=== PATIENT | male | born 1990 | race Caucasian/White ===

== ENCOUNTER 2016-06-24 14:15 | Inpatient (IN) | payer OTHER ==
[2016-06-24 15:04] VITALS: BMI 25.2
--- NOTE | 2016-06-24 15:41 | HP ---
COWS - Scale Resting Pulse: 0= [place] 80 or Below Sweatin= Chills/Flushing Restless Observation: 3= Extraneous Movement Pupil Size: 1= Pupils >than Normal Bone or Joint Aches: 2= Severe Diffuse Aches Runny Nose/ Eye Tearin= Nasal Congestion GI Upset > 30mins: 1= Stomach Cramp Tremor Observation: 2= Slight Tremor Visible Yawning Observation: 2= >3x During Session Anxiety or Irritability: 2=Irritable/Anxious Goose Flesh Skin: 0=Smooth Skin COWS Score: 15 Admission ROS BHS - HPI Chief Complaint: I need help to stop using heroin and cocaine Allergies/Adverse Reactions: Allergies Allergy/AdvReac Type Severity Reaction Status Date / Time Sulfa (Sulfonamide Allergy Unknown Verified 06/24/16 15:33 Antibiotics) History of Present Illness: 25 y/o mpt with a h/o heroin and cocaine dep. seeking detox. Exam Limitations: No Limitations - Ebola screening Have you traveled outside of the country in the last 21 days: No Have you been sick,other than usual withdrawal symptoms: No Do you have a fever: No - Review of Systems Constitutional: Loss of Appetite, Night Sweats, Changes in sleep EENT: reports: Blurred Vision, Nose Congestion Respiratory: reports: No Symptoms reported Cardiac: reports: No Symptoms Reported GI: reports: No Symptoms Reported : reports: No Symptoms Reported Musculoskeletal: reports: Joint Pain, Muscle Pain Integumentary: reports: Sweating Neuro: reports: No Symptoms reported Endocrine: reports: No Symptoms Reported Hematology: reports: No Symptoms Reported Psychiatric: reports: Agitated, Anxious, Depressed Other Systems: Reviewed and Negative Patient History - Patient Medical History Hx Anemia: No Hx Asthma: No Hx Chronic Obstructive Pulmonary Disease (COPD): No Hx Cancer: No Hx Cardiac Disorders: No Hx Congestive Heart Failure: No Hx Hypertension: No Hx Hypercholesterolemia: No Hx Pacemaker: No HX Cerebrovascular Accident: No Hx Seizures: No Hx Dementia: No Hx Diabetes: No Hx Gastrointestinal Disorders: No Hx Genitourinary Disorders: No Hx Sexually Transmitted Disorders: No Hx Renal Disease (ESRD): No Hx Thyroid Disease: No Hx Human Immunodeficiency Virus (HIV): No Hx Hepatitis C: Yes Hx Depression: Yes Hx Suicide Attempt: No Hx Bipolar Disorder: No Hx Schizophrenia: No Other Medical History: ADHD - Patient Surgical History Hx Cholecystectomy: Yes (2013) Hx Section: No Hx Orthopedic Surgery: No Hx Hysterectomy: No Other Surgical History: left arm exploratory 2nd iv needle fb. Anesthesia Reaction: No - PPD History Previous Implant?: Yes Documented Results: Negative w/o proof PPD to be Administered?: Yes - Reproductive History Patient is a Female of Child Bearing Age (11 -55 yrs old): No - Smoking Cessation Smoking history: Current every day smoker Have you smoked in the past 12 months: Yes Aproximately how many cigarettes per day: 10 Cigars Per Day: 0 Hx Chewing Tobacco Use: No Initiated information on smoking cessation: Yes 'Breaking Loose' booklet given: 06/24/16 - Substance & Tx. History Hx Alcohol Use: No Hx Substance Use: Yes Substance Use Type: Cocaine, Heroin Hx Substance Use Treatment: Yes - Substances Abused Heroin Route: Injection Frequency: Daily Amount used: 8-10 BAGS Age of first use: 21 Date of Last Use: 06/24/16 Cocaine Route: Injection Frequency: 1-3 times last 30 days Amount used: $20 Age of first use: 24 Date of Last Use: 06/23/16 Family Disease History - Family Disease History Family History: Denies Admission Physical Exam BHS - Vital Signs Vital Signs: Vital Signs - 24 hr 06/24/16 15:03 Temperature 98.3 F Pulse Rate 71 Respiratory 18 Rate Blood Pressure 112/60 25 y/o m pt aox3 , yawning , restless but cooperative with exam . - Physical General Appearance: Yes: Disheveled, Irritable, Sweating, Anxious HEENTM: Yes: EOMI, Hearing grossly Normal, Normocephalic, Normal Voice, LAMIN Respiratory: Yes: Chest Non-Tender, Lungs Clear, Normal Breath Sounds, No Respiratory Distress Neck: Yes: Supple, Trachea in good position Breast: Yes: Within Normal Limits Cardiology: Yes: Regular Rhythm, Regular Rate, S1, S2 Abdominal: Yes: Non Tender, Flat, Soft, Increased Bowel Sounds Genitourinary: Yes: Within Normal Limits Back: Yes: Decreased Range of Motion Musculoskeletal: Yes: Muscle Pain Extremities: Yes: Tremors, Other (well healed scar left medial arm) 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, Fully Oriented, Motor Strength 5/5, Normal Response Integumentary: Yes: Track Jay (mark.) Lymphatic: Yes: Within Normal Limits - Diagnostic (1) Opioid dependence with withdrawal Current Visit: Yes Status: Chronic (2) Cocaine dependence Current Visit: Yes Status: Chronic Qualifiers: Substance use status: uncomplicated Qualified Code(s): F14.20 - Cocaine dependence, uncomplicated (3) Nicotine dependence Current Visit: Yes Status: Chronic (4) ADHD (attention deficit hyperactivity disorder) Current Visit: Yes Status: Chronic Qualifiers: Attention deficit-hyperactivity disorder type: unspecified Qualified Code(s): F90.9 - Attention-deficit hyperactivity disorder, unspecified type Cleared for Admission [facility] - Detox or Rehab [facility] Level of Care: Medically Managed Detox Regimen/Protocol: Methadone [facility] Breath Alcohol Content Breath Alcohol Content: 0 Urine Drug Screen - Results Drug Screen Negative: No Urine Drug Screen Results: DUSTIN-Cocaine, OPI-Opiates
[2016-06-24] MEDS ORDERED: MAG HYDROX/AL HYDROX/SIMETH 30 ML UNIT-DOSE CUP PO PRN (15:51)
[2016-06-24] MEDS ORDERED: NICOTINE POLACRILEX 4 MG GUM BC PRN (15:51)
[2016-06-24] MEDS ORDERED: IBUPROFEN 400 MG TABLET (FP) PO PRN (15:51)
[2016-06-24] MEDS ORDERED: MENTHOL/PHENOL 1 EACH UD MM PRN (15:51)
[2016-06-24] MEDS ORDERED: MAGNESIUM HYDROX 2400MG/30ML ORAL SUSPENSION 30 ML CUP PO PRN (15:51)
[2016-06-24] MEDS ORDERED: MAGNESIUM CITRATE 300 ML BOTTLE PO PRN (15:51)
[2016-06-24] MEDS ORDERED: LOPERAMIDE HCL 2 MG CAPSULE PO PRN (15:51)
[2016-06-24] MEDS ORDERED: guaiFENesin/D-METHORPHAN HB 10 ML UNIT-DOSE CUPS PO PRN (15:51)
[2016-06-24] MEDS ORDERED: P-EPHED 60MG/TRIPROLIDI 2.5MG TABLET PO PRN (15:51)
[2016-06-24] MEDS ORDERED: METHADONE HCL 10 MG TABLET (FOR DETOX USE ONLY) PO ONE ×2 (18:15→23:00)
[2016-06-24] MEDS: diazePAM 5 MG TABLET PO PRN (19:15)
[2016-06-24] MEDS: THIAMINE HCL 100 MG TABLET (FP) PO SCH (22:12)
[2016-06-24] MEDS: diphenhydrAMINE HCL 50 MG CAPSULE PO PRN (22:13)
[2016-06-24 22:57] LABS: URINE APPEARANCE CLEAR; URINE BILIRUBIN NEGATIVE (NEGATIVE); URINE BLOOD NEGATIVE (NEGATIVE); URINE COLOR LTYELLOW; URINE GLUCOSE (UA) NEGATIVE (NEGATIVE); URINE KETONE NEGATIVE (NEGATIVE); URINE LEUK ESTERASE NEGATIVE (NEGATIVE); URINE NITRITE NEGATIVE (NEGATIVE); URINE PROTEIN NEGATIVE (NEGATIVE); URINE UROBILINOGEN NEGATIVE E.U./dl (0.2-1.0)
[2016-06-25] MEDS: diazePAM 5 MG TABLET PO PRN ×5 (05:50→22:05)
[2016-06-25] MEDS ORDERED: METHADONE HCL 10 MG TABLET (FOR DETOX USE ONLY) PO ONE (10:00)
[2016-06-25] MEDS: NICOTINE 21 MG/24 HOURS TOPICAL PATCH TD SCH (10:09)
[2016-06-25] MEDS: PRENATAL VITAMINS W/ FOLIC ACID TABLET (FP) PO SCH (10:10)
--- NOTE | 2016-06-25 11:17 | PN ---
S COWS - Scale Resting Pulse: 0= [place] 80 or Below Sweatin= Chills/Flushing Restless Observation: 3= Extraneous Movement Pupil Size: 2= Moderately Dilated Bone or Joint Aches: 4=Acute Joint/Muscle Pain Runny Nose/ Eye Tearin= Nasal Congestion GI Upset > 30mins: 1= Stomach Cramp Tremor Observation of Outstretched Hands: 1= Tremor [place], Not Seen Yawning Observation: 1= 1-2x During Session Anxiety or Irritability: 2=Irritable/Anxious Goose Flesh Skin: 0=Smooth Skin COWS Score: 16 S Progress Note (SOAP) Subjective: NAUSEA/VOMITING, COLD SWEATS,INTERMITTENT SLEEP. Objective: 06/25/16 11:16 Vital Signs Temperature 97.4 F L 06/25/16 09:49 Pulse Rate 72 06/25/16 09:49 Respiratory Rate 18 06/25/16 09:49 Blood Pressure 121/85 06/25/16 09:49 O2 Sat by Pulse Oximetry (%) Laboratory Last Values Urine Color Ltyellow 06/24/16 22:48 Urine Appearance Clear 06/24/16 22:48 Urine pH 7.0 (5.0-8.0) 06/24/16 22:48 Ur Specific [place] 1.023 (1.001-1.035) 06/24/16 22:48 Urine Protein Negative (NEGATIVE) 06/24/16 22:48 Urine Glucose (UA) Negative (NEGATIVE) 06/24/16 22:48 Urine Ketones Negative (NEGATIVE) 06/24/16 22:48 Urine Blood Negative (NEGATIVE) 06/24/16 22:48 Urine Nitrite Negative (NEGATIVE) 06/24/16 22:48 Urine Bilirubin Negative (NEGATIVE) 06/24/16 22:48 Urine Urobilinogen Negative E.U./dl (0.2-1.0) 06/24/16 22:48 Ur Leukocyte Esterase Negative (NEGATIVE) 06/24/16 22:48 Assessment: 06/25/16 11:16 WITHDRAWAL SX Plan: CONTINUE DETOX ZOFRAN OR TIGAN PRN.
[2016-06-25] MEDS ORDERED: ONDANSETRON *ODT* 4 MG TABLET SL PRN (11:18)
--- NOTE | 2016-06-25 12:52 | EKG ---
Test Reason : Blood Pressure : / mmHG Vent. Rate : 080 BPM Atrial Rate : 080 BPM P-R Int : 154 ms QRS Dur : 108 ms QT Int : 410 ms P-R-T Axes : 070 053 052 degrees QTc Int : 472 ms NORMAL SINUS RHYTHM NORMAL ECG NO PREVIOUS ECGS AVAILABLE Confirmed by ARMIN TOPETE, ELY ([id number]) on 06/25/2016 12:51:56 PM Referred By: Marco Ellis Confirmed By:ELY FUNEZ MD
--- NOTE | 2016-06-25 14:27 | CONSULT ---
[facility] Psychiatric Consult - Data Date of interview: 06/25/16 Admission source: [facility] Identifying data: First admission to [facility] for this 25 y/o male from [place] ancestry seeking detox treatment on for heroin and cocaine dependence.Patient is single,a father of one,domiciled (lives with parents), unemployed and dependent on relatives for financial support. Substance Abuse History: - Smoking Cessation. Smoking history: Current every day smoker. Have you smoked in the past 12 months: Yes. Aproximately how many cigarettes per day: 10. Cigars Per Day: 0. Hx Chewing Tobacco Use: No. Initiated information on smoking cessation: Yes. 'Breaking Loose' booklet given : 06/24/16. - Substance & Tx. History. Hx Alcohol Use: No. Hx Substance Use: Yes. Substance Use Type: Cocaine, Heroin. Hx Substance Use Treatment: Yes. - Substances Abused. Heroin. Route: Injection. Frequency: Daily. Amount used: 8-10 BAGS. Age of first use: 21. Date of Last Use: 06/24/16. Cocaine. Route: Injection. Frequency: 1-3 times last 30 days. Amount used: $ 20. Age of first use: 24. Date of Last Use: 06/23/16. Confirmed by patient in this session. Medical History: Hepatitis C,past history of cholecystectomy and exploratory surgery on left arm (foreign body:IV needle). Psychiatric History: Patient admits to a history of " more than 5 psychiatric hospitalizations " at [facility].Diagnosed with Bipolar Disorder,MDD,Anxiety Disorder and insomnia.Mr Mena reports no recent history of OPD care,no contact with mental healthcare providers and no intake of psychotropic medications.He denies history of suicide attempts. Physical/Sexual Abuse/Trauma History: Patient denies. Additional Comment: Urine Drug Screen Results: DUSTIN-Cocaine, OPI-Opiates.Noted. Mental Status Exam - Mental Status Exam Alert and Oriented to: Time, Place, Person Cognitive Function: Good Patient Appearance: Well Groomed Mood: Hopeful, Euthymic Affect: Appropriate, Normal Range Patient Behavior: Appropriate, Cooperative Speech Pattern: Clear, Appropriate Voice Loudness: Normal Thought Process: Goal Oriented Thought Disorder: Not Present Hallucinations: Denies Suicidal Ideation: Denies Homicidal Ideation: Denies Insight/Judgement: Poor Sleep: Poorly, Difficulty falling asleep Appetite: Good Muscle strength/Tone: Normal Gait/Station: Normal Psychiatric Findings - Problem List ([place] 1, 2,3) (1) Opioid dependence with withdrawal Current Visit: Yes Status: Acute (2) Cocaine dependence Current Visit: Yes Status: Acute Qualifiers: Substance use status: uncomplicated Qualified Code(s): F14.20 - Cocaine dependence, uncomplicated (3) Nicotine dependence Current Visit: Yes Status: Acute (4) Substance induced mood disorder Current Visit: Yes Status: Acute (5) Insomnia Current Visit: Yes Status: Acute (6) Bipolar disorder Current Visit: Yes Status: Acute Comment: History. - Initial Treatment Plan Initial Treatment Plan: Psycoeducation.Detoxification.Medications as per patient 's specific requests :gabapentin 200 mg po tid + trazodone 50 mg po hs.Review of pharmacy claims shows past filled scipts for these two drugs (12/2015) @ [facility].Side effects/benefits discussed with the patient.Made aware of the risk of priapism (trazodone).Patient is in agreement with this careplan.Observation.
[2016-06-25] MEDS: THIAMINE HCL 100 MG TABLET (FP) PO SCH (22:02)
[2016-06-25] MEDS: traZODone HCL 50 MG TABLET (FP) PO SCH (22:05)
[2016-06-25] MEDS: GABAPENTIN 100 MG CAPSULE (FP) PO SCH (22:05)
[2016-06-26] MEDS: GABAPENTIN 100 MG CAPSULE (FP) PO SCH ×3 (05:51→22:01)
[2016-06-26] MEDS ORDERED: METHADONE HCL 5 MG TABLET (FOR DETOX USE ONLY) PO ONE (10:00)
[2016-06-26 10:02] LABS: MCH 27.8 pg (25.7-33.7); MCHC 33.8 g/dl (32.0-35.9); MEAN CELL VOLUME 82.2 fl (80-96); MEAN PLT VOLUME 9.2 fl (7.5-11.1); PLATELET COUNT 334 K/MM3 (134-434); RDW 13.7 % (11.9-15.9); WHITE BLOOD COUNT 8.6 K/mm3 (4.0-10.0)
[2016-06-26] MEDS: diazePAM 5 MG TABLET PO PRN ×3 (10:06→19:37)
[2016-06-26] MEDS: PRENATAL VITAMINS W/ FOLIC ACID TABLET (FP) PO SCH (10:06)
[2016-06-26] MEDS: NICOTINE 21 MG/24 HOURS TOPICAL PATCH TD SCH (10:06)
--- NOTE | 2016-06-26 10:06 | PN ---
BHS COWS - Scale Resting Pulse: 1= [place] 81-100 Sweatin= Chills/Flushing Restless Observation: 5= Unable to Sit Still Pupil Size: 2= Moderately Dilated Bone or Joint Aches: 4=Acute Joint/Muscle Pain Runny Nose/ Eye Tearin= Nasal Congestion GI Upset > 30mins: 1= Stomach Cramp Tremor Observation of Outstretched Hands: 1= Tremor [place], Not Seen Yawning Observation: 1= 1-2x During Session Anxiety or Irritability: 2=Irritable/Anxious Goose Flesh Skin: 0=Smooth Skin COWS Score: 19 S Progress Note (SOAP) Subjective: ANXIETY,RESTLESS,IRRITABLE,UNABLE TO STAY STILL,YAWNING. Objective: 06/26/16 10:06 Vital Signs Temperature 97.3 F L 06/26/16 09:41 Pulse Rate 83 06/26/16 09:41 Respiratory Rate 18 06/26/16 09:41 Blood Pressure 124/64 06/26/16 09:41 O2 Sat by Pulse Oximetry (%) Laboratory Last Values Urine Color Ltyellow 06/24/16 22:48 Urine Appearance Clear 06/24/16 22:48 Urine pH 7.0 (5.0-8.0) 06/24/16 22:48 Ur Specific [place] 1.023 (1.001-1.035) 06/24/16 22:48 Urine Protein Negative (NEGATIVE) 06/24/16 22:48 Urine Glucose (UA) Negative (NEGATIVE) 06/24/16 22:48 Urine Ketones Negative (NEGATIVE) 06/24/16 22:48 Urine Blood Negative (NEGATIVE) 06/24/16 22:48 Urine Nitrite Negative (NEGATIVE) 06/24/16 22:48 Urine Bilirubin Negative (NEGATIVE) 06/24/16 22:48 Urine Urobilinogen Negative E.U./dl (0.2-1.0) 06/24/16 22:48 Ur Leukocyte Esterase Negative (NEGATIVE) 06/24/16 22:48 Assessment: 06/26/16 10:06 WITHDRAWAL SX Plan: CONTINUE DETOX INCREASE PO FLUIDS.
[2016-06-26] MEDS ORDERED: cloNIDine HCL 0.1 MG TABLET PO SCH ×2 (10:15→20:00)
[2016-06-26 10:22] LABS: ALBUMIN 3.7 g/dl (3.4-5.0); ALK PHOS 87 U/L (45-117); ANION GAP 10 (8-16); BILIRUBIN,TOTAL 0.5 mg/dL (0.2-1.0); CALCIUM 9.2 mg/dL (8.5-10.1); CO2 25 mmol/L (21-32); CREATININE 0.8 mg/dL (0.7-1.3); GLUCOSE,RANDOM 100 mg/dL (74-106); SGOT/AST 11 U/L (15-37); SGPT/ALT 18 U/L (12-78); TOT PROT 6.8 g/dl (6.4-8.2)
[2016-06-26] MEDS: hydrOXYzine PAMOATE 25 MG CAPSULE (FP) PO PRN (19:37)
[2016-06-26] MEDS: THIAMINE HCL 100 MG TABLET (FP) PO SCH (22:01)
[2016-06-26] MEDS: traZODone HCL 50 MG TABLET (FP) PO SCH (22:02)
[2016-06-27] MEDS: GABAPENTIN 100 MG CAPSULE (FP) PO SCH ×3 (05:32→22:03)
[2016-06-27] MEDS ORDERED: METHADONE HCL 5 MG TABLET (FOR DETOX USE ONLY) PO ONE (10:00)
[2016-06-27] MEDS: NICOTINE 21 MG/24 HOURS TOPICAL PATCH TD SCH (10:13)
[2016-06-27] MEDS: PRENATAL VITAMINS W/ FOLIC ACID TABLET (FP) PO SCH (10:13)
[2016-06-27] MEDS: diazePAM 5 MG TABLET PO PRN (10:13)
--- NOTE | 2016-06-27 10:14 | PN ---
BHS Progress Note (SOAP) Subjective: Sweating,interrupted sleep,restless Objective: 06/27/16 10:13 Vital Signs - 8 hr 06/27/16 06/27/16 06/27/16 03:30 06:45 09:42 Temperature 97 F L 96.8 F L Pulse Rate 71 93 H Respiratory 18 18 20 Rate Blood Pressure 114/64 105/64 Laboratory Last Values WBC 8.6 K/mm3 (4.0-10.0) 06/26/16 07:00 RBC 5.10 M/mm3 (4.00-5.60) 06/26/16 07:00 Hgb 14.2 GM/dL (11.7-16.9) 06/26/16 07:00 Hct 41.9 % (35.4-49) 06/26/16 07:00 MCV 82.2 fl (80-96) 06/26/16 07:00 MCHC 33.8 g/dl (32.0-35.9) 06/26/16 07:00 RDW 13.7 % (11.9-15.9) 06/26/16 07:00 Plt Count 334 K/MM3 (134-434) 06/26/16 07:00 MPV 9.2 fl (7.5-11.1) 06/26/16 07:00 Sodium 143 mmol/L (136-145) 06/26/16 07:00 Potassium 4.2 mmol/L (3.5-5.1) 06/26/16 07:00 Chloride 108 mmol/L (98-107) H 06/26/16 07:00 Carbon Dioxide 25 mmol/L (21-32) 06/26/16 07:00 Anion Gap 10 (8-16) 06/26/16 07:00 BUN 16 mg/dL (7-18) 06/26/16 07:00 Creatinine 0.8 mg/dL (0.7-1.3) 06/26/16 07:00 Creat Clearance w eGFR > 60 (>60) 06/26/16 07:00 Random Glucose 100 mg/dL (74-106) 06/26/16 07:00 Calcium 9.2 mg/dL (8.5-10.1) 06/26/16 07:00 Total Bilirubin 0.5 mg/dL (0.2-1.0) 06/26/16 07:00 AST 11 U/L (15-37) L 06/26/16 07:00 ALT 18 U/L (12-78) 06/26/16 07:00 Alkaline Phosphatase 87 U/L (45-117) 06/26/16 07:00 Total Protein 6.8 g/dl (6.4-8.2) 06/26/16 07:00 Albumin 3.7 g/dl (3.4-5.0) 06/26/16 07:00 Urine Color Ltyellow 06/24/16 22:48 Urine Appearance Clear 06/24/16 22:48 Urine pH 7.0 (5.0-8.0) 06/24/16 22:48 Ur Specific [place] 1.023 (1.001-1.035) 06/24/16 22:48 Urine Protein Negative (NEGATIVE) 06/24/16 22:48 Urine Glucose (UA) Negative (NEGATIVE) 06/24/16 22:48 Urine Ketones Negative (NEGATIVE) 06/24/16 22:48 Urine Blood Negative (NEGATIVE) 06/24/16 22:48 Urine Nitrite Negative (NEGATIVE) 06/24/16 22:48 Urine Bilirubin Negative (NEGATIVE) 06/24/16 22:48 Urine Urobilinogen Negative E.U./dl (0.2-1.0) 06/24/16 22:48 Ur Leukocyte Esterase Negative (NEGATIVE) 06/24/16 22:48 RPR Titer Nonreactive (NONREACTIVE) 06/26/16 07:00 Hepatitis C Antibody >11.0 s/co ratio (0.0-0.9) H 06/26/16 07:00 labs noted,hep c previously + Assessment: 06/27/16 10:14 Withdrawal sx. Plan: Continue detox
[2016-06-27] MEDS: ACETAMINOPHEN 325 MG TABLET (FP) PO PRN (11:05)
[2016-06-27] MEDS: hydrOXYzine PAMOATE 25 MG CAPSULE (FP) PO PRN (13:30)
--- NOTE | 2016-06-27 20:40 | PN ---
Anne Progress Note Note: Psychiatry Attending's note : Approached by patient. Complaint : insomnia. Trazodone not effective at 50mg/hs. Intervention : Trazodone is raised to 100 mg po hs. Mr Mena agrees with this careplan.
[2016-06-27] MEDS: traZODone HCL 50 MG TABLET (FP) PO SCH (22:03)
[2016-06-27] MEDS: THIAMINE HCL 100 MG TABLET (FP) PO SCH (22:03)
[2016-06-27] MEDS: diphenhydrAMINE HCL 50 MG CAPSULE PO PRN (22:04)
[2016-06-28] MEDS: GABAPENTIN 100 MG CAPSULE (FP) PO SCH ×3 (07:27→22:06)
[2016-06-28] MEDS ORDERED: METHADONE HCL 10 MG TABLET (FOR DETOX USE ONLY) PO ONE (10:00)
[2016-06-28] MEDS: PRENATAL VITAMINS W/ FOLIC ACID TABLET (FP) PO SCH (10:05)
[2016-06-28] MEDS: NICOTINE 21 MG/24 HOURS TOPICAL PATCH TD SCH (10:05)
--- NOTE | 2016-06-28 13:26 | PN ---
S Progress Note (SOAP) Subjective: Interrupted Sleep, Restlessness, Mild Body Aches, Fatigue, reports feeling better Objective: Vital Signs Temperature 96.2 F L 06/28/16 09:47 Pulse Rate 91 H 06/28/16 09:47 Respiratory Rate 20 06/28/16 09:47 Blood Pressure 107/70 06/28/16 09:47 O2 Sat by Pulse Oximetry (%) Laboratory Last Values WBC 8.6 K/mm3 (4.0-10.0) 06/26/16 07:00 RBC 5.10 M/mm3 (4.00-5.60) 06/26/16 07:00 Hgb 14.2 GM/dL (11.7-16.9) 06/26/16 07:00 Hct 41.9 % (35.4-49) 06/26/16 07:00 MCV 82.2 fl (80-96) 06/26/16 07:00 MCHC 33.8 g/dl (32.0-35.9) 06/26/16 07:00 RDW 13.7 % (11.9-15.9) 06/26/16 07:00 Plt Count 334 K/MM3 (134-434) 06/26/16 07:00 MPV 9.2 fl (7.5-11.1) 06/26/16 07:00 Sodium 143 mmol/L (136-145) 06/26/16 07:00 Potassium 4.2 mmol/L (3.5-5.1) 06/26/16 07:00 Chloride 108 mmol/L (98-107) H 06/26/16 07:00 Carbon Dioxide 25 mmol/L (21-32) 06/26/16 07:00 Anion Gap 10 (8-16) 06/26/16 07:00 BUN 16 mg/dL (7-18) 06/26/16 07:00 Creatinine 0.8 mg/dL (0.7-1.3) 06/26/16 07:00 Creat Clearance w eGFR > 60 (>60) 06/26/16 07:00 Random Glucose 100 mg/dL (74-106) 06/26/16 07:00 Calcium 9.2 mg/dL (8.5-10.1) 06/26/16 07:00 Total Bilirubin 0.5 mg/dL (0.2-1.0) 06/26/16 07:00 AST 11 U/L (15-37) L 06/26/16 07:00 ALT 18 U/L (12-78) 06/26/16 07:00 Alkaline Phosphatase 87 U/L (45-117) 06/26/16 07:00 Total Protein 6.8 g/dl (6.4-8.2) 06/26/16 07:00 Albumin 3.7 g/dl (3.4-5.0) 06/26/16 07:00 Urine Color Ltyellow 06/24/16 22:48 Urine Appearance Clear 06/24/16 22:48 Urine pH 7.0 (5.0-8.0) 06/24/16 22:48 Ur Specific [place] 1.023 (1.001-1.035) 06/24/16 22:48 Urine Protein Negative (NEGATIVE) 06/24/16 22:48 Urine Glucose (UA) Negative (NEGATIVE) 06/24/16 22:48 Urine Ketones Negative (NEGATIVE) 06/24/16 22:48 Urine Blood Negative (NEGATIVE) 06/24/16 22:48 Urine Nitrite Negative (NEGATIVE) 06/24/16 22:48 Urine Bilirubin Negative (NEGATIVE) 06/24/16 22:48 Urine Urobilinogen Negative E.U./dl (0.2-1.0) 06/24/16 22:48 Ur Leukocyte Esterase Negative (NEGATIVE) 06/24/16 22:48 RPR Titer Nonreactive (NONREACTIVE) 06/26/16 07:00 Hepatitis C Antibody >11.0 s/co ratio (0.0-0.9) H 06/26/16 07:00 vitals and labs noted Assessment: Withdrawal Symptoms Plan: Continue Detox
[2016-06-28] MEDS: ACETAMINOPHEN 325 MG TABLET (FP) PO PRN (20:34)
[2016-06-28] MEDS: THIAMINE HCL 100 MG TABLET (FP) PO SCH (22:06)
[2016-06-28] MEDS: traZODone HCL 50 MG TABLET (FP) PO SCH (22:06)
[2016-06-28] MEDS: diphenhydrAMINE HCL 50 MG CAPSULE PO PRN (22:07)
[2016-06-29] MEDS ORDERED: METHADONE HCL 5 MG TABLET (FOR DETOX USE ONLY) PO ONE (06:00)
[2016-06-29] MEDS: GABAPENTIN 100 MG CAPSULE (FP) PO SCH (06:29)
[2016-06-29 06:47] VITALS: BP 128/73; PULSE 77; TEMP 95.9
--- NOTE | 2016-06-29 19:39 | DS ---
[facility] Detox Discharge Summary Admission Date: 06/24/16 Discharge Date: 06/29/16 - History Present History: Cocaine Dependence, Opioid Dependence Pertinent Past History: ADHD - Physical Exam Results Vital Signs: Vital Signs Temperature 95.9 F L 06/29/16 06:46 Pulse Rate 77 06/29/16 06:46 Respiratory Rate 18 06/29/16 06:46 Blood Pressure 128/73 06/29/16 06:46 O2 Sat by Pulse Oximetry (%) Pertinent Admission Physical Exam Findings: Withdrawal sx. Laboratory Last Values WBC 8.6 K/mm3 (4.0-10.0) 06/26/16 07:00 RBC 5.10 M/mm3 (4.00-5.60) 06/26/16 07:00 Hgb 14.2 GM/dL (11.7-16.9) 06/26/16 07:00 Hct 41.9 % (35.4-49) 06/26/16 07:00 MCV 82.2 fl (80-96) 06/26/16 07:00 MCHC 33.8 g/dl (32.0-35.9) 06/26/16 07:00 RDW 13.7 % (11.9-15.9) 06/26/16 07:00 Plt Count 334 K/MM3 (134-434) 06/26/16 07:00 MPV 9.2 fl (7.5-11.1) 06/26/16 07:00 Sodium 143 mmol/L (136-145) 06/26/16 07:00 Potassium 4.2 mmol/L (3.5-5.1) 06/26/16 07:00 Chloride 108 mmol/L (98-107) H 06/26/16 07:00 Carbon Dioxide 25 mmol/L (21-32) 06/26/16 07:00 Anion Gap 10 (8-16) 06/26/16 07:00 BUN 16 mg/dL (7-18) 06/26/16 07:00 Creatinine 0.8 mg/dL (0.7-1.3) 06/26/16 07:00 Creat Clearance w eGFR > 60 (>60) 06/26/16 07:00 Random Glucose 100 mg/dL (74-106) 06/26/16 07:00 Calcium 9.2 mg/dL (8.5-10.1) 06/26/16 07:00 Total Bilirubin 0.5 mg/dL (0.2-1.0) 06/26/16 07:00 AST 11 U/L (15-37) L 06/26/16 07:00 ALT 18 U/L (12-78) 06/26/16 07:00 Alkaline Phosphatase 87 U/L (45-117) 06/26/16 07:00 Total Protein 6.8 g/dl (6.4-8.2) 06/26/16 07:00 Albumin 3.7 g/dl (3.4-5.0) 06/26/16 07:00 Urine Color Ltyellow 06/24/16 22:48 Urine Appearance Clear 06/24/16 22:48 Urine pH 7.0 (5.0-8.0) 06/24/16 22:48 Ur Specific [place] 1.023 (1.001-1.035) 06/24/16 22:48 Urine Protein Negative (NEGATIVE) 06/24/16 22:48 Urine Glucose (UA) Negative (NEGATIVE) 06/24/16 22:48 Urine Ketones Negative (NEGATIVE) 06/24/16 22:48 Urine Blood Negative (NEGATIVE) 06/24/16 22:48 Urine Nitrite Negative (NEGATIVE) 06/24/16 22:48 Urine Bilirubin Negative (NEGATIVE) 06/24/16 22:48 Urine Urobilinogen Negative E.U./dl (0.2-1.0) 06/24/16 22:48 Ur Leukocyte Esterase Negative (NEGATIVE) 06/24/16 22:48 RPR Titer Nonreactive (NONREACTIVE) 06/26/16 07:00 Hepatitis C Antibody >11.0 s/co ratio (0.0-0.9) H 06/26/16 07:00 labs noted,hep c previously + - Treatment Hospital Course: Detox Protocol Followed, Detoxed Safely, Responded well, Discharged Condition Good, Rehab Referral Accepted - Medication Discharge Medications: Ambulatory Orders Albuterol Sulfate Inhaler - [Ventolin Hfa Inhaler -] 2 inh PO Q4H PRN 06/24/16 - Diagnosis (1) Cocaine dependence Status: Acute Qualifiers: Substance use status: uncomplicated Qualified Code(s): F14.20 - Cocaine dependence, uncomplicated (2) Insomnia Status: Acute (3) Nicotine dependence Status: Acute (4) Opioid dependence with withdrawal Status: Acute (5) Substance induced mood disorder Status: Acute (6) ADHD (attention deficit hyperactivity disorder) Status: Chronic Qualifiers: Attention deficit-hyperactivity disorder type: unspecified Qualified Code(s): F90.9 - Attention-deficit hyperactivity disorder, unspecified type (7) Bipolar disorder Status: Acute - AMA Did Patient Leave Against Medical Advice: No
== END 2016-06-29 07:25 | disposition home or self-care (01) | DRG 773 ==
LOC: YASAS 14:15 → Y3N 17:54
PROVIDERS: ADMIT Internal Medicine; ATTEND Internal Medicine
PROC: HZ2ZZZZ Detoxification Services for Substance Abuse Treatment (ICD-10-PCS; principal; 2016-06-29)
DX: F11.23 Opioid dependence with withdrawal (principal); F14.20 Cocaine dependence, uncomplicated; F17.210 Nicotine dependence, cigarettes, uncomplicated; F19.24 Other psychoactive substance dependence with psychoactive substance-induced mood disorder; F31.9 Bipolar disorder, unspecified; F90.9 Attention-deficit hyperactivity disorder, unspecified type; G47.00 Insomnia, unspecified
CPT/HCPCS: 36415; 80053; 81003; 85027; 86593; 93005; 93010

== ENCOUNTER 2017-08-27 11:07 | Inpatient (IN) | payer OTHER ==
[2017-08-27 11:45] VITALS: BMI 35.4
--- NOTE | 2017-08-27 13:12 | HP ---
COWS - Scale Resting Pulse: 1= SD 81-100 Sweatin=Flushed/Facial Moisture Restless Observation: 3= Extraneous Movement Pupil Size: 1= Pupils >than Normal Bone or Joint Aches: 2= Severe Diffuse Aches Runny Nose/ Eye Tearin= Runny Nose/Eyes GI Upset > 30mins: 3= Vomiting/Diarrhea Tremor Observation: 2= Slight Tremor Visible Yawning Observation: 2= >3x During Session Anxiety or Irritability: 2=Irritable/Anxious Goose Flesh Skin: 0=Smooth Skin COWS Score: 20 Admission ROS S - HPI Chief Complaint: i need help to stop using heroin and xanax Allergies/Adverse Reactions: Allergies Allergy/AdvReac Type Severity Reaction Status Date / Time Sulfa (Sulfonamide Allergy Unknown Verified 08/27/17 11:40 Antibiotics) History of Present Illness: this 27 years old male with heroin and xanax dependence,seeking detox, withdrawal symptom,last detox 06/24/16 to 06/29/16 nicotine dependence anxiety,depression,insomnia longest period of sobriety 8 months - Ebola screening Have you traveled outside of the country in the last 21 days: No Have you had contact with anyone from an Ebola affected area: No Have you been sick,other than usual withdrawal symptoms: No Do you have a fever: No - Review of Systems Constitutional: Chills, Loss of Appetite, Malaise, Night Sweats, Changes in sleep, Weakness EENT: reports: Tearing, Nose Congestion Respiratory: reports: No Symptoms reported Cardiac: reports: Palpitations GI: reports: Diarrhea, Nausea, Vomiting, Abdominal cramping : reports: No Symptoms Reported Musculoskeletal: reports: Back Pain, Joint Pain, Muscle Pain, Joint Stiffness Integumentary: reports: Dryness Neuro: reports: Headache, Tremors Endocrine: reports: No Symptoms Reported Hematology: reports: No Symptoms Reported Psychiatric: reports: No Sypmtoms Reported, Judgement Intact, Mood/Affect Appropiate, Anxious (insomnia), Depressed Patient History - Patient Medical History Hx Anemia: No Hx Asthma: Yes (childhood) Hx Chronic Obstructive Pulmonary Disease (COPD): No Hx Cancer: No Hx Cardiac Disorders: No Hx Congestive Heart Failure: No Hx Hypertension: No Hx Hypercholesterolemia: No Hx Pacemaker: No HX Cerebrovascular Accident: No Hx Seizures: No Hx Dementia: No Hx Diabetes: No Hx Gastrointestinal Disorders: No Hx Genitourinary Disorders: No Hx Sexually Transmitted Disorders: No Hx Renal Disease (ESRD): No Hx Thyroid Disease: No Hx Human Immunodeficiency Virus (HIV): No Hx Hepatitis C: Yes Hx Depression: Yes Hx Suicide Attempt: No Hx Bipolar Disorder: No Hx Schizophrenia: No Other Medical History: anxiety,depression,insomnia s/p lap cholecystedtomy - Patient Surgical History Past Surgical History: Yes Hx Neurologic Surgery: No Hx Cataract Extraction: No Hx Cardiac Surgery: No Hx Lung Surgery: No Hx Breast Surgery: No Hx Breast Biopsy: No Hx Abdominal Surgery: No Hx Appendectomy: No Hx Cholecystectomy: Yes (in 2013) Hx Section: No Hx Orthopedic Surgery: No Hx Hysterectomy: No Other Surgical History: left arm exploratory 2nd iv needle fb. Anesthesia Reaction: No - PPD History Previous Implant?: Yes Documented Results: Negative w/proof Implanted On Prior [facility] Admission?: Yes Date: 06/26/16 Results: 0 mm PPD to be Administered?: Yes - Smoking Cessation Smoking history: Current every day smoker Have you smoked in the past 12 months: Yes Aproximately how many cigarettes per day: 20 Cigars Per Day: 0 Hx Chewing Tobacco Use: No Initiated information on smoking cessation: Yes 'Breaking Loose' booklet given: 08/27/17 - Substance & Tx. History Hx Alcohol Use: No Hx Substance Use: Yes Substance Use Type: Heroin, Tranquilizers Hx Substance Use Treatment: Yes ([facility] 06/24/16 to 06/29/16) - Substances Abused Heroin Route: Injection Frequency: Daily Amount used: 10 bags Age of first use: 19 Date of Last Use: 08/26/17 Xanax Route: Oral Frequency: 3-6 times per week Amount used: 6 mg. Age of first use: 19 Date of Last Use: 08/25/17 st. methadone Route: Oral Frequency: 1-3 times last 30 days Amount used: 5-10 mg. Age of first use: 27 Date of Last Use: 08/23/17 Family Disease History - Family Disease History Family History: Denies Admission Physical Exam BHS - Vital Signs Vital Signs: Vital Signs - 24 hr 08/27/17 11:37 Temperature 97.0 F L Pulse Rate 95 H Respiratory 20 Rate Blood Pressure 149/67 - Physical General Appearance: Yes: Moderate Distress, Tremorous, Irritable, Sweating, Anxious HEENTM: Yes: Pharynx Normal, Nasal Congestion Respiratory: Yes: Lungs Clear, Normal Breath Sounds, No Respiratory Distress Neck: Yes: Within Normal Limits Breast: Yes: Within Normal Limits Cardiology: Yes: Within Normal Limits, Regular Rhythm, Regular Rate, S1, S2 Abdominal: Yes: Within Normal Limits, Normal Bowel Sounds, Non Tender, Soft, Other (s/p lap cholecystectomy) Genitourinary: Yes: Within Normal Limits Back: Yes: Muscle Spasm Musculoskeletal: Yes: full range of Motion, Back pain, Muscle Pain Extremities: Yes: Tremors Neurological: Yes: certified 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 II-XII NML intact, Fully Oriented, Alert, Motor Strength 5/5 Integumentary: Yes: Dry, Track [place] Lymphatic: Yes: Within Normal Limits - Diagnostic (1) Opioid dependence with withdrawal Current Visit: No Status: Acute (2) Uncomplicated sedative, hypnotic or anxiolytic withdrawal Current Visit: Yes Status: Acute (3) Nicotine dependence Current Visit: No Status: Acute (4) Insomnia secondary to depression with anxiety Current Visit: Yes Status: Acute (5) Intravenous drug user Current Visit: Yes Status: Acute (6) S/P laparoscopic cholecystectomy Current Visit: Yes Status: Acute Cleared for Admission [facility] - Detox or Rehab [facility] Level of Care: Medically Managed Detox Regimen/Protocol: Methadone (urine for drug screen negative for benzo) [facility] Breath Alcohol Content Breath Alcohol Content: 0 Urine Drug Screen - Results Drug Screen Negative: No Urine Drug Screen Results: DUSTIN-Cocaine, OPI-Opiates, MTD-Methadone
[2017-08-27] MEDS ORDERED: LOPERAMIDE HCL 2 MG CAPSULE PO PRN (13:28)
[2017-08-27] MEDS ORDERED: P-EPHED 60MG/TRIPROLIDI 2.5MG TABLET PO PRN (13:28)
[2017-08-27] MEDS ORDERED: MAG HYDROX/AL HYDROX/SIMETH 30 ML UNIT-DOSE CUP PO PRN (13:28)
[2017-08-27] MEDS ORDERED: ACETAMINOPHEN 325 MG TABLET (FP) PO PRN (14:00)
[2017-08-27] MEDS ORDERED: IBUPROFEN 400 MG TABLET (FP) PO PRN (14:01)
[2017-08-27] MEDS ORDERED: hydrOXYzine PAMOATE 50 MG CAPSULE (FP) PO PRN (14:01)
[2017-08-27] MEDS ORDERED: MAGNESIUM CITRATE 300 ML BOTTLE PO PRN (14:01)
[2017-08-27] MEDS ORDERED: guaiFENesin/D-METHORPHAN HB 10 ML UNIT-DOSE CUPS PO PRN (14:01)
[2017-08-27] MEDS ORDERED: MAGNESIUM HYDROX 2400MG/30ML ORAL SUSPENSION 30 ML CUP PO PRN (14:02)
[2017-08-27] MEDS ORDERED: MENTHOL/PHENOL 1 EACH UD MM PRN (14:02)
[2017-08-27] MEDS ORDERED: NICOTINE POLACRILEX 2 MG GUM BUC PRN (14:03)
[2017-08-27] MEDS ORDERED: METHADONE HCL 10 MG TABLET (FOR DETOX USE ONLY) PO ONE ×2 (14:30→23:00)
[2017-08-27] MEDS: diazePAM 5 MG TABLET PO PRN ×2 (15:25→22:49)
[2017-08-27] MEDS: NICOTINE 21 MG/24 HOURS TOPICAL PATCH TD SCH (15:31)
--- NOTE | 2017-08-27 16:12 | EKG ---
Test Reason : Blood Pressure : / mmHG Vent. Rate : 077 BPM Atrial Rate : 077 BPM P-R Int : 164 ms QRS Dur : 104 ms QT Int : 428 ms P-R-T Axes : 046 050 041 degrees QTc Int : 484 ms NORMAL SINUS RHYTHM PROLONGED QT ABNORMAL ECG WHEN COMPARED WITH ECG OF 24-JUN-2016 19:20, NO SIGNIFICANT CHANGE WAS FOUND Confirmed by AMPARO LUNDBERG MD (2013) on 08/27/2017 4:11:48 PM Referred By: Confirmed By:AMPARO LUNDBERG MD
--- NOTE | 2017-08-27 16:32 | CONSULT ---
[facility] Psychiatric Consult - Data Date of interview: 08/27/17 Admission source: [facility] Identifying data: Patient is a 27 year old single male, father of one, unemployed (not receiving financial assistance), and living with grandmother. This is one of multiple admissions for patient. Patient admitted to for opioid and cocaine dependence. Substance Abuse History: Following information confirmed with Mr. Mena: - Smoking Cessation. Smoking history: Current every day smoker. Have you smoked in the past 12 months: Yes. Aproximately how many cigarettes per day: 20. Cigars Per Day: 0. Hx Chewing Tobacco Use: No. Initiated information on smoking cessation: Yes. 'Breaking Loose' booklet given: 08/27/17. - Substance & Tx. History. Hx Alcohol Use: No. Hx Substance Use: Yes. Substance Use Type : Heroin, Tranquilizers. Hx Substance Use Treatment: Yes ([facility] 06/24/16 to 04/05). - Substances Abused. Heroin. Route: Injection. Frequency: Daily. Amount used: 10 bags. Age of first use: 19. Date of Last Use: 08/26/17. Xanax. Route: Oral. Frequency: 3-6 times per week. Amount used: 6 mg. Age of first use: 19. Date of Last Use: 08/25/17. st. methadone. Route: Oral. Frequency: 1-3 times last 30 days. Amount used: 5-10 mg. Age of first use: 27. Date of Last Use: 08/23/17 Medical History: s/p lap cholecystedtomy, Hep C, Asthma (childhood) Psychiatric History: [facility] [place] with no psychiatric hospitalizations. Pt. denies current OPD, although reports outpatient care 4 years ago in [place]. States he was prescribed depakote, trazodone, and concerta but was nonadherent to medications. Self reports diagnosis of ADHD and bipolar disorder. Patient denies h/o suicide attempt. Pt. reports poor sleep. Physical/Sexual Abuse/Trauma History: Denies. Mental Status Exam - Mental Status Exam Alert and Oriented to: Time, Place, Person Cognitive Function: Good Patient Appearance: Well Groomed Mood: Hopeful Affect: Mood Congruent Patient Behavior: Appropriate, Cooperative Speech Pattern: Clear, Appropriate Voice Loudness: Normal Thought Process: Intact, Goal Oriented Thought Disorder: Not Present Hallucinations: Denies Suicidal Ideation: Denies Homicidal Ideation: Denies Insight/Judgement: Poor Sleep: Poorly Appetite: Fair Muscle strength/Tone: Normal Gait/Station: Normal Psychiatric Findings - Problem List ([place] 1, 2,3) (1) Cocaine dependence Current Visit: Yes Status: Acute Qualifiers: Substance use status: uncomplicated Qualified Code(s): F14.20 - Cocaine dependence, uncomplicated (2) Nicotine dependence Current Visit: Yes Status: Chronic (3) Insomnia Current Visit: Yes Status: Acute (4) Opioid dependence with withdrawal Current Visit: Yes Status: Acute (5) Substance induced mood disorder Current Visit: Yes Status: Acute (6) Uncomplicated sedative, hypnotic or anxiolytic withdrawal Current Visit: Yes Status: Acute - Initial Treatment Plan Initial Treatment Plan: Psychoeducation provided. Detoxification in progress. Ambien 10mg qhs prn ordered for insomnia. Benefits and side effects discussed. Pt. made aware of the risk of parasomnia when accepting ambien. Verbal consent given. Will continue to monitor.
[2017-08-27 17:57] LABS: URINE APPEARANCE CLEAR; URINE BILIRUBIN NEGATIVE (<2.0 mg/dL); URINE COLOR YELLOW; URINE GLUCOSE (UA) NEGATIVE (NEGATIVE); URINE KETONE NEGATIVE (NEGATIVE); URINE LEUK ESTERASE NEGATIVE (NEGATIVE); URINE NITRITE NEGATIVE (NEGATIVE); URINE PROTEIN NEGATIVE (NEGATIVE); URINE UROBILINOGEN 4.0 E.U/dl mg/dL (0.2-1.0)
[2017-08-27] MEDS ORDERED: MELATONIN 5 MG TABLETS PO PRN (22:00)
[2017-08-27] MEDS: ZOLPIDEM TARTRATE 5 MG TABLET PO PRN (22:50)
[2017-08-27] MEDS: THIAMINE HCL 100 MG TABLET (FP) PO SCH (22:50)
[2017-08-27] MEDS: cloNIDine HCL 0.1 MG TABLET PO SCH (22:50)
[2017-08-28] MEDS: diazePAM 5 MG TABLET PO PRN ×3 (08:54→22:20)
[2017-08-28] MEDS ORDERED: METHADONE HCL 10 MG TABLET (FOR DETOX USE ONLY) PO ONE (10:00)
[2017-08-28] MEDS: PRENATAL VITAMINS W/ FOLIC ACID TABLET (FP) PO SCH (10:17)
[2017-08-28] MEDS: cloNIDine HCL 0.1 MG TABLET PO SCH ×2 (10:17→22:20)
[2017-08-28] MEDS: NICOTINE 21 MG/24 HOURS TOPICAL PATCH TD SCH (10:18)
[2017-08-28 10:22] LABS: MCH 28.7 pg (25.7-33.7); MCHC 34.9 g/dl (32.0-35.9); MEAN CELL VOLUME 82.3 fl (80-96); MEAN PLT VOLUME 9.6 fl (7.5-11.1); PLATELET COUNT 276 K/MM3 (134-434); RBC 4.87 M/mm3 (4.00-5.60); RDW 13.7 % (11.9-15.9); WHITE BLOOD COUNT 6.5 K/mm3 (4.0-10.0)
[2017-08-28 10:25] LABS: CHLORIDE 102 mmol/L (98-107); POTASSIUM 4.2 mmol/L (3.5-5.1); SODIUM 139 mmol/L (136-145)
[2017-08-28 10:33] LABS: ALBUMIN 3.9 g/dl (3.4-5.0); ALK PHOS 94 U/L (45-117); ANION GAP 10 (8-16); BILIRUBIN,TOTAL 0.9 mg/dL (0.2-1.0); BLOOD UREA NITROGEN 17 mg/dL (7-18); CALCIUM 9.5 mg/dL (8.5-10.1); CO2 27 mmol/L (21-32); CREATININE 0.8 mg/dL (0.7-1.3); GLUCOSE,RANDOM 114 mg/dL (74-106); SGOT/AST 37 U/L (15-37); SGPT/ALT 38 U/L (12-78); TOT PROT 7.3 g/dl (6.4-8.2)
--- NOTE | 2017-08-28 12:15 | PN ---
BHS COWS - Scale Resting Pulse: 0= [place] 80 or Below Sweatin= Chills/Flushing Restless Observation: 0= Sits Still Pupil Size: 0= Normal to Room Light Bone or Joint Aches: 2= Severe Diffuse Aches Runny Nose/ Eye Tearin= None GI Upset > 30mins: 0= None Tremor Observation of Outstretched Hands: 2= Slight Tremor Visible Yawning Observation: 2= >3x During Session Anxiety or Irritability: 2=Irritable/Anxious Goose Flesh Skin: 3=Piloerection COWS Score: 12 BHS Progress Note (SOAP) Subjective: Tremors, Sweating, Fatigue, Body Aches. Objective: PATIENT A & O X 3, OBSERVED AMBULATING ON UNIT. NO ACUTE DISTRESS. 08/28/17 12:15 Vital Signs Temperature 96.4 F L 08/28/17 10:58 Pulse Rate 76 08/28/17 10:58 Respiratory Rate 18 08/28/17 10:58 Blood Pressure 116/58 08/28/17 10:58 O2 Sat by Pulse Oximetry (%) Laboratory Tests 08/27/17 08/27/17 08/28/17 14:00 15:43 05:45 WBC 6.5 RBC 4.87 Hgb 14.0 Hct 40.0 MCV 82.3 MCH 28.7 MCHC 34.9 RDW 13.7 Plt Count 276 MPV 9.6 Sodium Potassium Chloride Carbon Dioxide Anion Gap BUN Creatinine Creat Clearance w eGFR Random Glucose Calcium Total Bilirubin AST ALT Alkaline Phosphatase Total Protein Albumin Urine Color Yellow Urine Appearance Clear Urine pH 6.0 Ur Specific [place] 1.026 Urine Protein Negative Urine Glucose (UA) Negative Urine Ketones Negative Urine Blood Negative Urine Nitrite Negative Urine Bilirubin Negative Urine Urobilinogen 4.0 e.u/dl Ur Leukocyte Esterase Negative RPR Titer HIV 1&2 Antibody Screen Negative HIV P24 Antigen Negative 08/28/17 08/28/17 05:45 05:45 WBC RBC Hgb Hct MCV MCH MCHC RDW Plt Count MPV Sodium 139 Potassium 4.2 Chloride 102 Carbon Dioxide 27 Anion Gap 10 BUN 17 Creatinine 0.8 Creat Clearance w eGFR > 60 Random Glucose 114 H Calcium 9.5 Total Bilirubin 0.9 D AST 37 D ALT 38 D Alkaline Phosphatase 94 Total Protein 7.3 Albumin 3.9 Urine Color Urine Appearance Urine pH Ur Specific [place] Urine Protein Urine Glucose (UA) Urine Ketones Urine Blood Urine Nitrite Urine Bilirubin Urine Urobilinogen Ur Leukocyte Esterase RPR Titer Nonreactive HIV 1&2 Antibody Screen HIV P24 Antigen LABS NOTED. Assessment: 08/28/17 12:15 WITHDRAWAL SYMPTOMS. Plan: CONTINUE DETOX. INCREASE DAILY PO FLUID INTAKE.
[2017-08-28] MEDS: ALBUTEROL SO4 18 GM HFA INHALER IH PRN ×2 (14:15→21:32)
[2017-08-28] MEDS ORDERED: ALBUTEROL SO4 18 GM HFA INHALER IH ONE (14:18)
[2017-08-28] MEDS: ZOLPIDEM TARTRATE 5 MG TABLET PO PRN (22:20)
[2017-08-28] MEDS: CYCLOBENZAPRINE HCL 10 MG TABLET (FP) PO PRN (22:20)
[2017-08-28] MEDS: THIAMINE HCL 100 MG TABLET (FP) PO SCH (22:20)
[2017-08-29] MEDS ORDERED: METHADONE HCL 5 MG TABLET (FOR DETOX USE ONLY) PO ONE (10:00)
[2017-08-29] MEDS: PRENATAL VITAMINS W/ FOLIC ACID TABLET (FP) PO SCH (10:21)
[2017-08-29] MEDS: NICOTINE 21 MG/24 HOURS TOPICAL PATCH TD SCH (10:21)
[2017-08-29] MEDS: cloNIDine HCL 0.1 MG TABLET PO SCH ×2 (10:21→22:24)
[2017-08-29] MEDS: diazePAM 5 MG TABLET PO PRN ×3 (10:22→22:27)
[2017-08-29] MEDS: CYCLOBENZAPRINE HCL 10 MG TABLET (FP) PO PRN (15:12)
--- NOTE | 2017-08-29 16:09 | PN ---
BHS COWS - Scale Resting Pulse: 0= ID 80 or Below Sweatin= Chills/Flushing Restless Observation: 1= Difficult to Sit Still Pupil Size: 0= Normal to Room Light Bone or Joint Aches: 2= Severe Diffuse Aches Runny Nose/ Eye Tearin= Nasal Congestion GI Upset > 30mins: 0= None Tremor Observation of Outstretched Hands: 2= Slight Tremor Visible Yawning Observation: 1= 1-2x During Session Anxiety or Irritability: 4=Extreme Anxiety Goose Flesh Skin: 0=Smooth Skin COWS Score: 12 S Progress Note (SOAP) Subjective: Fatigue, Sweating, Anxious. Objective: PATIENT A & O X 3, OBSERVED AMBULATING ON UNIT. NO ACUTE DISTRESS. 08/29/17 16:08 Vital Signs Temperature 97.1 F L 08/29/17 14:57 Pulse Rate 72 08/29/17 14:57 Respiratory Rate 20 08/29/17 14:57 Blood Pressure 106/51 08/29/17 14:57 O2 Sat by Pulse Oximetry (%) Laboratory Tests 08/27/17 08/27/17 08/28/17 14:00 15:43 05:45 WBC 6.5 RBC 4.87 Hgb 14.0 Hct 40.0 MCV 82.3 MCH 28.7 MCHC 34.9 RDW 13.7 Plt Count 276 MPV 9.6 Sodium Potassium Chloride Carbon Dioxide Anion Gap BUN Creatinine Creat Clearance w eGFR Random Glucose Calcium Total Bilirubin AST ALT Alkaline Phosphatase Total Protein Albumin Urine Color Yellow Urine Appearance Clear Urine pH 6.0 Ur Specific [place] 1.026 Urine Protein Negative Urine Glucose (UA) Negative Urine Ketones Negative Urine Blood Negative Urine Nitrite Negative Urine Bilirubin Negative Urine Urobilinogen 4.0 e.u/dl Ur Leukocyte Esterase Negative RPR Titer HIV 1&2 Antibody Screen Negative HIV P24 Antigen Negative 08/28/17 08/28/17 05:45 05:45 WBC RBC Hgb Hct MCV MCH MCHC RDW Plt Count MPV Sodium 139 Potassium 4.2 Chloride 102 Carbon Dioxide 27 Anion Gap 10 BUN 17 Creatinine 0.8 Creat Clearance w eGFR > 60 Random Glucose 114 H Calcium 9.5 Total Bilirubin 0.9 D AST 37 D ALT 38 D Alkaline Phosphatase 94 Total Protein 7.3 Albumin 3.9 Urine Color Urine Appearance Urine pH Ur Specific [place] Urine Protein Urine Glucose (UA) Urine Ketones Urine Blood Urine Nitrite Urine Bilirubin Urine Urobilinogen Ur Leukocyte Esterase RPR Titer Nonreactive HIV 1&2 Antibody Screen HIV P24 Antigen LABS NOTED. Assessment: 08/29/17 16:08 WITHDRAWAL SYMPTOMS. Plan: CONTINUE DETOX.
[2017-08-29] MEDS: THIAMINE HCL 100 MG TABLET (FP) PO SCH (22:23)
[2017-08-29] MEDS: ZOLPIDEM TARTRATE 5 MG TABLET PO PRN (22:27)
[2017-08-30] MEDS: ALBUTEROL SO4 18 GM HFA INHALER IH PRN ×2 (03:42→11:24)
[2017-08-30] MEDS ORDERED: METHADONE HCL 5 MG TABLET (FOR DETOX USE ONLY) PO ONE (10:00)
[2017-08-30] MEDS: cloNIDine HCL 0.1 MG TABLET PO SCH ×2 (10:23→22:16)
[2017-08-30] MEDS: NICOTINE 21 MG/24 HOURS TOPICAL PATCH TD SCH (10:23)
[2017-08-30] MEDS: diazePAM 5 MG TABLET PO PRN (10:23)
[2017-08-30] MEDS: PRENATAL VITAMINS W/ FOLIC ACID TABLET (FP) PO SCH (10:23)
[2017-08-30] MEDS ORDERED: ALBUTEROL SO4 2.5/IPRATROPIUM 0.5 INH SOL 3 ML VIAL.NEB. NEB PRN (11:41)
[2017-08-30] MEDS: BUDESONIDE/FORMETEROL FUMARATE 80/4.5 mcg INHALER IH SCH ×2 (12:17→22:18)
--- NOTE | 2017-08-30 13:13 | PN ---
BHS Progress Note (SOAP) Subjective: ALERT O X 3 . OOB AMBULATING ON UNIT WITH STEADY GAIT. PT C/O SLIGHT SOB STATING HIS ASTHMA MIGHT BE ACTING UP. AND PT MET WITH COUNSELOR TODAY TO DISCUSS AFTERCARE POSSIBLY FOR TOMORROW. Objective: 08/30/17 13:11 Vital Signs 08/30/17 08/30/17 06:14 10:31 Temperature 96.1 F L 97.7 F Pulse Rate 60 74 Respiratory 18 16 Rate Blood Pressure 110/60 99/57 Laboratory Tests 08/27/17 08/27/17 08/28/17 14:00 15:43 05:45 WBC 6.5 RBC 4.87 Hgb 14.0 Hct 40.0 MCV 82.3 MCH 28.7 MCHC 34.9 RDW 13.7 Plt Count 276 MPV 9.6 Sodium Potassium Chloride Carbon Dioxide Anion Gap BUN Creatinine Creat Clearance w eGFR Random Glucose Calcium Total Bilirubin AST ALT Alkaline Phosphatase Total Protein Albumin Urine Color Yellow Urine Appearance Clear Urine pH 6.0 Ur Specific [place] 1.026 Urine Protein Negative Urine Glucose (UA) Negative Urine Ketones Negative Urine Blood Negative Urine Nitrite Negative Urine Bilirubin Negative Urine Urobilinogen 4.0 e.u/dl Ur Leukocyte Esterase Negative RPR Titer HIV 1&2 Antibody Screen Negative HIV P24 Antigen Negative 08/28/17 08/28/17 05:45 05:45 WBC RBC Hgb Hct MCV MCH MCHC RDW Plt Count MPV Sodium 139 Potassium 4.2 Chloride 102 Carbon Dioxide 27 Anion Gap 10 BUN 17 Creatinine 0.8 Creat Clearance w eGFR > 60 Random Glucose 114 H Calcium 9.5 Total Bilirubin 0.9 D AST 37 D ALT 38 D Alkaline Phosphatase 94 Total Protein 7.3 Albumin 3.9 Urine Color Urine Appearance Urine pH Ur Specific [place] Urine Protein Urine Glucose (UA) Urine Ketones Urine Blood Urine Nitrite Urine Bilirubin Urine Urobilinogen Ur Leukocyte Esterase RPR Titer Nonreactive HIV 1&2 Antibody Screen HIV P24 Antigen LUNGS:CLEAR TO AUSCULTATE. NO WHEEZING OR RHONCHI Assessment: 08/30/17 13:12 WITHDRAWAL SX Plan: CONTINUE DETOX DUONEB DIRECTED PRN SYMBICORT DIRECTED TO F/U WITH PT/COUNSELOR IN A.M RE REHAB ARRANGEMENT.
[2017-08-30] MEDS: CYCLOBENZAPRINE HCL 10 MG TABLET (FP) PO PRN (22:15)
[2017-08-30] MEDS: THIAMINE HCL 100 MG TABLET (FP) PO SCH (22:15)
[2017-08-30] MEDS: ZOLPIDEM TARTRATE 5 MG TABLET PO PRN (22:17)
[2017-08-31] MEDS ORDERED: METHADONE HCL 5 MG TABLET (FOR DETOX USE ONLY) PO ONE ×2 (06:45→09:45)
[2017-08-31 09:03] VITALS: BP 95/54; PULSE 67; TEMP 96.4
[2017-08-31] MEDS ORDERED: METHADONE HCL 10 MG TABLET (FOR DETOX USE ONLY) PO ONE (10:00)
[2017-08-31] MEDS: BUDESONIDE/FORMETEROL FUMARATE 80/4.5 mcg INHALER IH SCH (10:12)
[2017-08-31] MEDS: cloNIDine HCL 0.1 MG TABLET PO SCH (10:13)
[2017-08-31] MEDS: NICOTINE 21 MG/24 HOURS TOPICAL PATCH TD SCH (10:13)
[2017-08-31] MEDS: PRENATAL VITAMINS W/ FOLIC ACID TABLET (FP) PO SCH (10:13)
--- NOTE | 2017-08-31 12:27 | PN ---
BHS Progress Note (SOAP) Subjective: DETOX COMPLETED. ALERT O X 3. NAD. REFERRED TO [facility] TODAY. Objective: 08/31/17 12:24 Vital Signs 08/31/17 08/31/17 06:07 09:03 Temperature 95.5 F L 96.4 F L Pulse Rate 65 67 Respiratory 18 18 Rate Blood Pressure 92/48 95/54 Laboratory Tests 08/27/17 08/27/17 08/28/17 14:00 15:43 05:45 WBC 6.5 RBC 4.87 Hgb 14.0 Hct 40.0 MCV 82.3 MCH 28.7 MCHC 34.9 RDW 13.7 Plt Count 276 MPV 9.6 Sodium Potassium Chloride Carbon Dioxide Anion Gap BUN Creatinine Creat Clearance w eGFR Random Glucose Calcium Total Bilirubin AST ALT Alkaline Phosphatase Total Protein Albumin Urine Color Yellow Urine Appearance Clear Urine pH 6.0 Ur Specific [place] 1.026 Urine Protein Negative Urine Glucose (UA) Negative Urine Ketones Negative Urine Blood Negative Urine Nitrite Negative Urine Bilirubin Negative Urine Urobilinogen 4.0 e.u/dl Ur Leukocyte Esterase Negative RPR Titer HIV 1&2 Antibody Screen Negative HIV P24 Antigen Negative 08/28/17 08/28/17 05:45 05:45 WBC RBC Hgb Hct MCV MCH MCHC RDW Plt Count MPV Sodium 139 Potassium 4.2 Chloride 102 Carbon Dioxide 27 Anion Gap 10 BUN 17 Creatinine 0.8 Creat Clearance w eGFR > 60 Random Glucose 114 H Calcium 9.5 Total Bilirubin 0.9 D AST 37 D ALT 38 D Alkaline Phosphatase 94 Total Protein 7.3 Albumin 3.9 Urine Color Urine Appearance Urine pH Ur Specific [place] Urine Protein Urine Glucose (UA) Urine Ketones Urine Blood Urine Nitrite Urine Bilirubin Urine Urobilinogen Ur Leukocyte Esterase RPR Titer Nonreactive HIV 1&2 Antibody Screen HIV P24 Antigen Assessment: 08/31/17 12:24 MEDICALLY STABLE Plan: D/C PT TODAY
[2017-08-31] MEDS ORDERED: INSULIN (NOVOLOG) ASPART 100 UNITS/ML 10ML VIAL SQ ONE (12:34)
--- NOTE | 2017-08-31 12:34 | DS ---
[facility] Detox Discharge Summary Admission Date: 08/27/17 Discharge Date: 08/31/17 - History Present History: Opioid Dependence, Sedative Dependence Additional Comments: DETOX COMPLETED. ALERT O X 3. PT REFERRED TO REHAB TODAY. Pertinent Past History: PLEASE SEE DX BELOW - Physical Exam Results Vital Signs: Vital Signs Temperature 96.4 F L 08/31/17 09:03 Pulse Rate 67 08/31/17 09:03 Respiratory Rate 18 08/31/17 09:03 Blood Pressure 95/54 08/31/17 09:03 O2 Sat by Pulse Oximetry (%) Pertinent Admission Physical Exam Findings: WITHDRAWAL SX Laboratory Tests 08/27/17 08/27/17 08/28/17 14:00 15:43 05:45 WBC 6.5 RBC 4.87 Hgb 14.0 Hct 40.0 MCV 82.3 MCH 28.7 MCHC 34.9 RDW 13.7 Plt Count 276 MPV 9.6 Sodium Potassium Chloride Carbon Dioxide Anion Gap BUN Creatinine Creat Clearance w eGFR Random Glucose Calcium Total Bilirubin AST ALT Alkaline Phosphatase Total Protein Albumin Urine Color Yellow Urine Appearance Clear Urine pH 6.0 Ur Specific [place] 1.026 Urine Protein Negative Urine Glucose (UA) Negative Urine Ketones Negative Urine Blood Negative Urine Nitrite Negative Urine Bilirubin Negative Urine Urobilinogen 4.0 e.u/dl Ur Leukocyte Esterase Negative RPR Titer HIV 1&2 Antibody Screen Negative HIV P24 Antigen Negative 08/28/17 08/28/17 05:45 05:45 WBC RBC Hgb Hct MCV MCH MCHC RDW Plt Count MPV Sodium 139 Potassium 4.2 Chloride 102 Carbon Dioxide 27 Anion Gap 10 BUN 17 Creatinine 0.8 Creat Clearance w eGFR > 60 Random Glucose 114 H Calcium 9.5 Total Bilirubin 0.9 D AST 37 D ALT 38 D Alkaline Phosphatase 94 Total Protein 7.3 Albumin 3.9 Urine Color Urine Appearance Urine pH Ur Specific [place] Urine Protein Urine Glucose (UA) Urine Ketones Urine Blood Urine Nitrite Urine Bilirubin Urine Urobilinogen Ur Leukocyte Esterase RPR Titer Nonreactive HIV 1&2 Antibody Screen HIV P24 Antigen - Treatment Hospital Course: Detox Protocol Followed, Detoxed Safely, Responded well, Discharged Condition Good, Rehab Referral Accepted Patient has Accepted a Rehab Referral to: [facility] - Medication Discharge Medications: Ambulatory Orders Albuterol Sulfate Inhaler - [Ventolin Hfa Inhaler -] 2 inh PO Q4H PRN 06/24/16 - Diagnosis (1) Intravenous drug user Current Visit: Yes Status: Chronic (2) Opioid dependence with withdrawal Current Visit: Yes Status: Acute (3) Uncomplicated sedative, hypnotic or anxiolytic withdrawal Current Visit: Yes Status: Acute (4) Nicotine dependence Current Visit: Yes Status: Acute Qualifiers: Nicotine product type: cigarettes Substance use status: in withdrawal Qualified Code(s): F17.213 - Nicotine dependence, cigarettes, with withdrawal (5) Asthma Current Visit: Yes Status: Chronic Qualifiers: Asthma severity: mild Asthma persistence: intermittent Asthma complication type: uncomplicated Qualified Code(s): J45.20 - Mild intermittent asthma, uncomplicated - AMA Did Patient Leave Against Medical Advice: No
[2017-09-01] MEDS ORDERED: METHADONE HCL 5 MG TABLET (FOR DETOX USE ONLY) PO ONE (06:00)
== END 2017-08-31 12:59 | disposition home or self-care (01) | DRG 773 ==
LOC: YASAS 11:07 → Y3N 14:11
PROVIDERS: ADMIT Internal Medicine; ATTEND Internal Medicine
PROC: HZ2ZZZZ Detoxification Services for Substance Abuse Treatment (ICD-10-PCS; principal; 2017-08-27)
DX: F11.23 Opioid dependence with withdrawal (principal); F13.230 Sedative, hypnotic or anxiolytic dependence with withdrawal, uncomplicated; F17.210 Nicotine dependence, cigarettes, uncomplicated; F19.24 Other psychoactive substance dependence with psychoactive substance-induced mood disorder; F51.05 Insomnia due to other mental disorder; J45.20 Mild intermittent asthma, uncomplicated; Z90.49 Acquired absence of other specified parts of digestive tract
CPT/HCPCS: 36415; 80053; 81003; 85027; 86593; 87389; 93005; 93010; 94640; J0735; J7620

== ENCOUNTER 2022-01-23 11:41 | Inpatient (IN) | payer OTHER ==
[2022-01-23 12:40] VITALS: RESP 18; BMI 31.5
[2022-01-23] MEDS ORDERED: NICOTINE POLACRILEX 2 MG GUM ONE (14:33)
[2022-01-23] MEDS ORDERED: hydrOXYzine PAMOATE 25 MG CAPSULE (FP) PO PRN (14:47)
[2022-01-23] MEDS ORDERED: NICOTINE POLACRILEX 2 MG GUM BC PRN (14:47)
[2022-01-23] MEDS ORDERED: MAGNESIUM CITRATE 300 ML BOTTLE PO PRN (14:47)
[2022-01-23] MEDS ORDERED: guaiFENesin 200 MG/10 ML 10 ML UNIT-DOSE CUPS PO PRN (14:47)
[2022-01-23] MEDS ORDERED: MAG HYDROX/AL HYDROX/SIMETH 30 ML UNIT-DOSE CUP PO PRN (14:47)
[2022-01-23] MEDS ORDERED: MAGNESIUM HYDROX 2400MG/30ML ORAL SUSPENSION 30 ML CUP PO PRN (14:47)
[2022-01-23] MEDS ORDERED: LOPERAMIDE HCL 2 MG CAPSULE PO PRN (14:47)
[2022-01-23] MEDS ORDERED: P-EPHED 60MG/TRIPROLIDI 2.5MG TABLET PO PRN (14:47)
[2022-01-23] MEDS ORDERED: NICOTINE 7 MG/24 HOURS TOPICAL PATCH TD PRN (15:00)
[2022-01-23] MEDS: THIAMINE HCL 100 MG TABLET (FP) PO SCH (21:25)
[2022-01-24] MEDS ORDERED: methaDONE HCL 10 MG TABLET PO SCH (10:15)
[2022-01-24] MEDS: PRENATAL VITAMINS W/ FOLIC ACID TABLET (FP) PO SCH (10:35)
[2022-01-24] MEDS: methaDONE 40 MG, methaDONE 30 MG PO SCH (10:37)
[2022-01-24] MEDS: NICOTINE 10 MG CARTRIDGE (INHALER) IH PRN (12:15)
[2022-01-24] MEDS: MELATONIN 5 MG TABLETS PO PRN (21:42)
[2022-01-24] MEDS: IBUPROFEN 400 MG TABLET (FP) PO PRN (21:42)
[2022-01-24] MEDS: THIAMINE HCL 100 MG TABLET (FP) PO SCH (21:42)
[2022-01-25] MEDS: methaDONE 40 MG, methaDONE 30 MG PO SCH (06:34)
[2022-01-25] MEDS: NICOTINE 10 MG CARTRIDGE (INHALER) IH PRN ×2 (09:51→16:44)
[2022-01-25] MEDS: PRENATAL VITAMINS W/ FOLIC ACID TABLET (FP) PO SCH (09:51)
[2022-01-25 12:20] LABS: PH,URINE 6.5 (5.0-8.0); URINE APPEARANCE CLEAR; URINE BILIRUBIN NEGATIVE (NEGATIVE); URINE COLOR YELLOW; URINE GLUCOSE (UA) NEGATIVE (NEGATIVE); URINE KETONE NEGATIVE (NEGATIVE); URINE LEUK ESTERASE NEGATIVE (NEGATIVE); URINE NITRITE NEGATIVE (NEGATIVE); URINE PROTEIN NEGATIVE (NEGATIVE)
[2022-01-25] MEDS: THIAMINE HCL 100 MG TABLET (FP) PO SCH (21:54)
[2022-01-25] MEDS: MELATONIN 5 MG TABLETS PO PRN (21:55)
[2022-01-25] MEDS: IBUPROFEN 400 MG TABLET (FP) PO PRN (21:55)
[2022-01-26] MEDS: methaDONE 40 MG, methaDONE 30 MG PO SCH (06:30)
[2022-01-26] MEDS: PRENATAL VITAMINS W/ FOLIC ACID TABLET (FP) PO SCH (10:30)
[2022-01-26] MEDS: NICOTINE 10 MG CARTRIDGE (INHALER) IH PRN ×2 (10:31→17:08)
[2022-01-26] MEDS: ACETAMINOPHEN 325 MG TABLET (FP) PO PRN (21:44)
[2022-01-26] MEDS: MELATONIN 5 MG TABLETS PO PRN (21:44)
[2022-01-26] MEDS: THIAMINE HCL 100 MG TABLET (FP) PO SCH (21:44)
[2022-01-27] MEDS: methaDONE 40 MG, methaDONE 30 MG PO SCH (06:10)
[2022-01-27] MEDS: PRENATAL VITAMINS W/ FOLIC ACID TABLET (FP) PO SCH (11:00)
[2022-01-27] MEDS ORDERED: CALAMINE 8% TOPICAL LOTION 177 ML BOTTLE TP PRN (13:31)
[2022-01-27] MEDS: NICOTINE 10 MG CARTRIDGE (INHALER) IH PRN (17:05)
[2022-01-27] MEDS: IBUPROFEN 400 MG TABLET (FP) PO PRN (17:05)
[2022-01-27] MEDS: THIAMINE HCL 100 MG TABLET (FP) PO SCH (21:24)
[2022-01-27] MEDS: ACETAMINOPHEN 325 MG TABLET (FP) PO PRN (21:25)
[2022-01-28] MEDS: methaDONE 40 MG, methaDONE 30 MG PO SCH (06:01)
[2022-01-28] MEDS: NICOTINE 10 MG CARTRIDGE (INHALER) IH PRN ×2 (08:39→16:33)
[2022-01-28 10:15] LABS: BASO % 0.3 % (0-2.0); EOS % 1.2 % (0-4.5); HEMATOCRIT 46.2 % (35.4-49); HEMOGLOBIN 15.6 GM/dL (11.7-16.9); MCH 29.1 pg (25.7-33.7); MCHC 33.7 g/dl (32.0-35.9); MEAN CELL VOLUME 86.4 fl (80-96); MEAN PLT VOLUME 9.2 fl (7.5-11.1); MONO % 7.1 % (3.8-10.2); NEUT % 56.4 % (42.8-82.8); PLATELET COUNT 320 10^3/uL (134-434); RBC 5.35 M/mm3 (4.00-5.60); RDW 13.7 % (11.9-15.9); WHITE BLOOD COUNT 6.4 K/mm3 (4.0-10.0)
[2022-01-28 10:31] LABS: BLOOD UREA NITROGEN 19.4 mg/dL (7-18); CALCIUM 9.8 mg/dL (8.5-10.1)
[2022-01-28 10:33] LABS: ALBUMIN 4.1 g/dl (3.4-5.0)
[2022-01-28] MEDS: PRENATAL VITAMINS W/ FOLIC ACID TABLET (FP) PO SCH (10:35)
[2022-01-28 10:36] LABS: CREATININE 0.8 mg/dL (0.55-1.3)
[2022-01-28 10:37] LABS: BILIRUBIN,TOTAL 0.8 mg/dL (0.2-1)
[2022-01-28] MEDS: THIAMINE HCL 100 MG TABLET (FP) PO SCH (21:28)
[2022-01-28] MEDS: MELATONIN 5 MG TABLETS PO PRN (21:28)
[2022-01-28] MEDS: ACETAMINOPHEN 325 MG TABLET (FP) PO PRN (21:29)
[2022-01-29] MEDS: methaDONE 40 MG, methaDONE 30 MG PO SCH (06:45)
[2022-01-29] MEDS: PRENATAL VITAMINS W/ FOLIC ACID TABLET (FP) PO SCH (10:34)
[2022-01-29] MEDS: IBUPROFEN 400 MG TABLET (FP) PO PRN ×2 (12:34→22:05)
[2022-01-29] MEDS: NICOTINE 10 MG CARTRIDGE (INHALER) IH PRN (12:35)
[2022-01-29] MEDS: ACETAMINOPHEN 325 MG TABLET (FP) PO PRN ×2 (14:17→18:47)
[2022-01-29] MEDS: MELATONIN 5 MG TABLETS PO PRN (21:34)
[2022-01-29] MEDS: THIAMINE HCL 100 MG TABLET (FP) PO SCH (21:34)
[2022-01-29] MEDS: BENZOCAINE 20 % GEL TUBE MM PRN (21:36)
[2022-01-30] MEDS: ACETAMINOPHEN 325 MG TABLET (FP) PO PRN ×4 (04:17→18:23)
[2022-01-30] MEDS: IBUPROFEN 400 MG TABLET (FP) PO PRN ×2 (06:15→11:40)
[2022-01-30] MEDS: methaDONE 40 MG, methaDONE 30 MG PO SCH (06:17)
[2022-01-30] MEDS: BENZOCAINE 20 % GEL TUBE MM PRN (09:34)
[2022-01-30] MEDS: PRENATAL VITAMINS W/ FOLIC ACID TABLET (FP) PO SCH (09:36)
[2022-01-30] MEDS: NICOTINE 10 MG CARTRIDGE (INHALER) IH PRN ×2 (10:08→21:44)
[2022-01-30] MEDS ORDERED: LIDOCAINE VISCOUS 2% ORAL/TOP 15 ML UNIT-DOSE CUP MM PRN (11:17)
[2022-01-30] MEDS: AMOXICILLIN 500 MG CAPSULE (FP) PO SCH ×2 (11:42→21:44)
[2022-01-30] MEDS: IBUPROFEN 600 MG TABLET (FP) PO PRN (17:41)
[2022-01-30] MEDS: THIAMINE HCL 100 MG TABLET (FP) PO SCH (21:44)
[2022-01-30] MEDS: MELATONIN 5 MG TABLETS PO PRN (21:44)
[2022-01-31] MEDS: ACETAMINOPHEN 325 MG TABLET (FP) PO PRN ×4 (00:16→21:41)
[2022-01-31] MEDS: methaDONE 40 MG, methaDONE 30 MG PO SCH (06:06)
[2022-01-31] MEDS: AMOXICILLIN 500 MG CAPSULE (FP) PO SCH ×2 (09:25→21:41)
[2022-01-31] MEDS: IBUPROFEN 600 MG TABLET (FP) PO PRN ×2 (09:25→17:43)
[2022-01-31] MEDS: PRENATAL VITAMINS W/ FOLIC ACID TABLET (FP) PO SCH (09:25)
[2022-01-31] MEDS: SENNOSIDES 8.6MG TABLET (FP) PO SCH ×2 (11:38→21:41)
[2022-01-31] MEDS: NICOTINE 10 MG CARTRIDGE (INHALER) IH PRN (17:04)
[2022-01-31] MEDS: THIAMINE HCL 100 MG TABLET (FP) PO SCH (21:41)
[2022-02-01] MEDS: IBUPROFEN 600 MG TABLET (FP) PO PRN ×2 (01:22→21:24)
[2022-02-01] MEDS: SENNOSIDES 8.6MG TABLET (FP) PO SCH ×2 (08:59→21:23)
[2022-02-01] MEDS: AMOXICILLIN 500 MG CAPSULE (FP) PO SCH ×2 (08:59→21:23)
[2022-02-01] MEDS: PRENATAL VITAMINS W/ FOLIC ACID TABLET (FP) PO SCH (08:59)
[2022-02-01] MEDS ORDERED: methaDONE HCL 10 MG TABLET PO SCH (10:00)
[2022-02-01] MEDS ORDERED: methaDONE 40 MG, methaDONE 20 MG PO SCH (10:00)
[2022-02-01] MEDS: ACETAMINOPHEN 325 MG TABLET (FP) PO PRN ×2 (11:13→15:26)
[2022-02-01] MEDS: NICOTINE 10 MG CARTRIDGE (INHALER) IH PRN (12:03)
[2022-02-01] MEDS: MELATONIN 5 MG TABLETS PO PRN (21:23)
[2022-02-01] MEDS: THIAMINE HCL 100 MG TABLET (FP) PO SCH (21:23)
[2022-02-02] MEDS ORDERED: methaDONE HCL 10 MG TABLET PO SCH (06:00)
[2022-02-02] MEDS: methaDONE 40 MG, methaDONE 20 MG PO SCH (06:17)
[2022-02-02] MEDS: ACETAMINOPHEN 325 MG TABLET (FP) PO PRN (06:19)
[2022-02-02] MEDS: PRENATAL VITAMINS W/ FOLIC ACID TABLET (FP) PO SCH (09:27)
[2022-02-02] MEDS: AMOXICILLIN 500 MG CAPSULE (FP) PO SCH ×2 (09:27→21:28)
[2022-02-02] MEDS: SENNOSIDES 8.6MG TABLET (FP) PO SCH ×2 (09:27→21:28)
[2022-02-02] MEDS: NICOTINE 10 MG CARTRIDGE (INHALER) IH PRN ×2 (14:14→21:29)
[2022-02-02] MEDS: IBUPROFEN 600 MG TABLET (FP) PO PRN (21:28)
[2022-02-02] MEDS: THIAMINE HCL 100 MG TABLET (FP) PO SCH (21:28)
[2022-02-03] MEDS: methaDONE 40 MG, methaDONE 20 MG PO SCH (06:12)
[2022-02-03] MEDS: ACETAMINOPHEN 325 MG TABLET (FP) PO PRN (06:14)
[2022-02-03 07:08] VITALS: BP 104/61; PULSE 83; TEMP 98
[2022-02-03] MEDS: SENNOSIDES 8.6MG TABLET (FP) PO SCH (09:02)
[2022-02-03] MEDS: AMOXICILLIN 500 MG CAPSULE (FP) PO SCH (09:02)
[2022-02-03] MEDS: PRENATAL VITAMINS W/ FOLIC ACID TABLET (FP) PO SCH (09:02)
[2022-02-03] MEDS: IBUPROFEN 600 MG TABLET (FP) PO PRN (09:04)
== END 2022-02-03 09:24 | disposition home or self-care (01) | DRG 772 ==
LOC: YASAS 11:41 → Y3W 17:28
PROVIDERS: ADMIT Allergy & Immunology; ATTEND Psychiatry & Neurology Pain Medicine
PROC: HZ42ZZZ Group Counseling for Substance Abuse Treatment, Cognitive-Behavioral (ICD-10-PCS; principal; 2022-01-23)
DX: F11.20 Opioid dependence, uncomplicated (principal); F14.20 Cocaine dependence, uncomplicated; F17.210 Nicotine dependence, cigarettes, uncomplicated; F31.9 Bipolar disorder, unspecified; F51.05 Insomnia due to other mental disorder; J45.20 Mild intermittent asthma, uncomplicated; K08.89 Other specified disorders of teeth and supporting structures; K05.10 Chronic gingivitis, plaque induced; S30.810A Abrasion of lower back and pelvis, initial encounter; X58.XXXA Exposure to other specified factors, initial encounter; Y92.9 Unspecified place or not applicable; Z88.2 Allergy status to sulfonamides
CPT/HCPCS: 36415; 71046-TC-FY; 80053; 81003; 85025; C9803-CS; U0003; U0005